=== PATIENT | female | born 1995 | race Hispanic/Latino ===

== ENCOUNTER 2019-08-02 02:35 | Day surgery (SDC) | payer OTHER ==
[2019-08-02 03:11] VITALS: BP 108/71; TEMP 98.3; BMI 26.8
[2019-08-02 03:56] LABS: Amnisure Internal Control QC ACCEPTABLE (ACCEPTABLE); Amnisure Test No Membranes Rupture (No Rupture)
--- NOTE | 2019-08-02 04:14 | PDOC.FPROB ---
FMR OB H&P: HPI - History of Present Illness Chief Complaint: LOF Indentification: 24 yo at 37.3 wga by LMP/16.4 wk sono History of Present Illness: Presents for what she thought to be loss of fluid around 2:30 this morning. Reports fetus made large movement, she went to bathroom and saw clear fluid. Denies VB, other vaginal discharge. + FM. Has been having some contractions since that time. Contractions felt low in her pelvis about every 5-10 minutes. Primary Care Physician: PNC: Tommy. 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: none - Surgical History Sx History: denies - Social History Social History: denies SACHIN - Family History Family History: denies FMR OB H&P: Medications - Current Home Medications: Medication Instructions Recorded Confirmed Type Vitamin 1 tablet PO DAILY 08/02/19 08/02/19 History Allergies/Adverse Reactions: Allergies Allergy/AdvReac Type Severity Reaction Status Date / Time No Known Allergies Allergy Verified 08/02/19 03:11 FMR OB H&P: ROS - Review of Systems General: denies: fever/chills, recent trauma Eyes: denies: vision changes, scotomas ENT: denies: nasal congestion Cardiovascular: denies: chest pain Respiratory: denies: cough, shortness of breath Gastrointestinal: denies: abdominal pain, nausea, vomiting Genitourinary (Female): reports: contractions. denies: dysuria, vaginal discharge, vaginal pain, vaginal bleeding Musculoskeletal: denies: pain Neurologic: denies: weakness, headache Integumentary: denies: rash Hematologic/Lymphatic: denies: prolonged or excessive bleeding FMR OB H&P: Vital Signs - Maternal Vital signs: Vital Signs - First Documented Temp Pulse Resp BP Pulse Ox 98.3 F 73 16 108/71 97 08/02/19 03:01 08/02/19 03:01 08/02/19 03:01 08/02/19 03:01 08/02/19 03:01 - Heart Tones Baseline: 120 Variability: moderate Acceleration: present Deceleration: absent Category: category 1 [place] contractions every: 15 min FMR OB H&P: Physical Exam - Physical Exam General: NAD, awake, alert and oriented HEENT: normocephalic and atraumatic, conjunctiva clear, no scleral icterus, grossly normal hearing Heart: RRR, normal S1/S2, no murmurs/rubs/gallops, other (mild lower extremity edema) General: CTAB, no wheezing Abdomen: soft, gravid, other (minimally tender) Musculoskeletal: pulses present Deviation from normal: mild redness to abdomen Lymphatic: no purpura, no petechia Psychiatric: normal mood and affect - Pelvic Exam SVE: 1/thick/-2 Membranes: intact FMR OB H&P: Results - Labs Lab results: Laboratory Results - last 24 hr 08/02/19 03:23 Amnio Swab Test No Membranes Rupture FMR OB H&P: A/P - Problem List (1) Irregular contractions Status: Acute Code(s): O62.2 - OTHER UTERINE INERTIA Disposition: observation on L&D. Discharge pending speculum & bedside ultrasound. Discussion: Date/Time: 08/02/19 0412 24 yo at 37.3 wga, Term IUP presenting today for : LOF, contractions: - amnisure negative - check 1/thick/-2. Repeat cervical check unchanged. - no continued leaking of fluid - category 1 strip - will perform speculum exam and bedside sono to assess fluid status. This H&P was discussed with Dr. Navarro and Dr. Maynard who agree with the above documentation and plan. Signature: Laurie Bear MD PGY1 Addendum - Attending - Attending Attestation Date/Time: 08/02/19 0624 I personally evaluated the patient and discussed the management with Dr. Bear I agree with the History, Examination, Assessment and Plan documented above with any addition or exceptions noted below. vitals 108/71 98.3 73 16 97% amnisure neg otoniel 14 speculum exam neg for pooling. pt discharged home with precautions
--- NOTE | 2019-08-02 04:41 | PDOC.BPN ---
- Brief Progress Note Bedside sono performed. ERICA of 14.8. Speculum exam: no pooling. Some white appearing discharge, asked about vaginal itching, signs of infection. Pt denied. D/C home. F/U w/ PNC as scheduled. Return precautions given.
== END 2019-08-02 04:47 | disposition home or self-care (01) ==
LOC: L&D/OP 02:35
PROVIDERS: ATTEND Obstetrics & Gynecology
DX: O99.89 Other specified diseases and conditions complicating pregnancy, childbirth and the puerperium (principal); N89.8 Other specified noninflammatory disorders of vagina; O47.1 False labor at or after 37 completed weeks of gestation; Z3A.37 37 weeks gestation of pregnancy
CPT/HCPCS: 84112; 99285

== ENCOUNTER 2019-08-15 04:36 | Inpatient (IN) | payer MEDICAID, OTHER, SELFPAY ==
[2019-08-15 05:07] VITALS: BMI 28.0
[2019-08-15] MEDS ORDERED: hydrALAZINE 20 MG/ML VIAL SLOW IVP PRN ×2 (05:20→10:32)
--- NOTE | 2019-08-15 06:01 | PDOC.FPROB ---
FMR OB H&P: HPI - History of Present Illness Chief Complaint: contractions Indentification: 24F @ 39.5wga by LMP c/w 16.4wk sono History of Present Illness: Patient is a 24F @ 39.5wga by LMP c/w 16.4wk sono that presents with contractions. Patient reports that contractions began at 3am this morning. She denies any loss of fluid or vaginal bleeding. She reports of some brown discharge about 3 days ago that has since resolved. She also had a headache a few days ago that has since resolved, and denies any headaches, vision changes, or swelling at this time. She denies cp, sob, abd pain, n/v, dysuria, vaginal discharge. She does report that she had a bout of diarrhea this morning around the time that her contractions started. She endorses movement. She denies any complications with this . Is unsure if she wants an epidural. Plans to breastfeed after delivery. 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: last pap a few weeks ago, per patient; NILM - Surgical History Sx History: none - Social History Social History: non-smoker, no etoh use, no drug use - Family History Family History: Father: HTN, passed from an HI Maternal Grandmother: DM FMR OB H&P: Medications - Current Home Medications: Medication Instructions Recorded Confirmed Type Vitamin 1 tablet PO DAILY 08/02/19 08/15/19 History Allergies/Adverse Reactions: Allergies Allergy/AdvReac Type Severity Reaction Status Date / Time No Known Allergies Allergy Verified 08/02/19 03:11 FMR OB H&P: ROS - Review of Systems General: denies: fever/chills, weight/appetite/sleep changes Eyes: denies: eye pain, vision changes ENT: denies: rhinorrhea, trouble with swallowing Cardiovascular: denies: chest pain, palpitation, edema Respiratory: reports: shortness of breath (when lying down). denies: cough Gastrointestinal: reports: diarrhea (1 bout this morning). denies: abdominal pain, vomiting, bright red blood Genitourinary (Female): denies: dysuria, hematuria Musculoskeletal: denies: pain, stiffness Neurologic: denies: syncope, seizures Integumentary: denies: itching, rash Breast: denies: lumps, bumps Endocrine: denies: cold intolerance, heat intolerance Hematologic/Lymphatic: denies: prolonged or excessive bleeding, enlarged lymph nodes Psychological: denies: depression, anxiety FMR OB H&P: Vital Signs - Maternal Vital signs: 109/68, p86 - Heart Tones Baseline: 130 Variability: moderate Acceleration: present Deceleration: absent Category: category 1 [place] contractions every: 3-8min FMR OB H&P: Physical Exam - Physical Exam General: NAD, awake, alert and oriented HEENT: EOMI, MMM Neck: supple, FROM Chest: non-tender to palpation, no lesions Heart: RRR, normal S1/S2 General: CTAB, no respiratory distress Abdomen: soft, gravid, non-tender, bowel sound present Musculoskeletal: pulses present, FROM in all four extremities Neurological: sensation to pain,touch and proprioception grossly normal, no focal deficit Skin: no rash, good tugor Lymphatic: no unusual bruising or bleeding, no purpura Psychiatric: intact recent and remote memory, good judgement and insight - Pelvic Exam SVE: 2.5/75/-2 [place] score: 6 Membranes: intact Presentation: cephalic FMR OB H&P: A/P - Problem List (1) Uterine contractions during Current Visit: Yes Status: Acute Code(s): O62.2 - OTHER UTERINE INERTIA (2) Normal in third trimester Current Visit: Yes Status: Acute Code(s): Z34.93 - ENCNTR FOR SUPRVSN OF NORMAL PREG, UNSP, THIRD TRIMESTER Disposition: Patient is a 24F @ 39.5wga by LMP c/w 16.4wk sono that presents with contractions. #sIUP #Contractions -ctx began at 3am this am -ctx q3-8min on strip -2.5/75/-2 @ 5am, intact -denies loss of fluid, vaginal bleeding; endorses movement -GBS negative -BP 109/68, denies [place], vision changes, swelling -denies dysuria, vaginal discharge -FHT: baseline 130, moderate variability with no decels -will recheck cervix at 7am. If patient does not make progress will discharge patient with return precautions. If patient does make progress will consider admitting to L&D at that time Dispo: term presenting with contractions; will continue to monitor FHT and recheck cervix at 7am to assess for progress Discussion: Date/Time: 08/15/19 5806 This H&P was discussed with [Aleyda] and [Susanne] who agree with the above documentation and plan. Signature: Chanel Rene, PGY1 Addendum - Attending - Attending Attestation Date/Time: 08/15/19 5016 I personally evaluated the patient and discussed the management with Dr. Rene I agree with the History, Examination, Assessment and Plan documented above with any addition or exceptions noted below.
--- NOTE | 2019-08-15 09:56 | ULT ---
Ultrasound biophysical profile HISTORY: Nonreactive strip FINDINGS: There is evidence of a single intrauterine gestation in cephalic presentation. Cardiac Doppler demons trates heart tones with a heart rate of 128 bpm. The placenta is located posteriorly without evidence of placenta previa. There is a normal amount of amniotic fluid. The amniotic fluid i ndex is calculated at 19 cm. The cervix is not completely imaged due to shadowing from the head. A score of 2 was obtained each for tone, breathing, movements, and amniotic fluid v olume. IMPRESSION: 1. Single intrauterine gestation in cephalic presentation with heart tones documented. 2. Amniotic fluid index is calculated at 19 cm. 3. Total biophysical profile score is 8 out of 8.
[2019-08-15] MEDS ORDERED: NS / Oxytocin 40 units/1000ml 1,000 ML IV PRN (10:32)
[2019-08-15] MEDS ORDERED: Lidocaine 1% (PF) 30 ML VIAL SC PRN (10:32)
[2019-08-15] MEDS ORDERED: Promethazine HCl 25 MG/ML VIAL IM PRN (10:32)
[2019-08-15] MEDS ORDERED: Ondansetron PF 4 MG/2 ML Vial IVP PRN (10:32)
--- NOTE | 2019-08-15 10:32 | PDOC.EVN ---
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 BPP 02/23...Class I FHTs CX changed from 2 to 4cm We will admit for early labor at full term. Augment if needed. Check GBS status.
--- NOTE | 2019-08-15 10:45 | PDOC.LDPN ---
Labor & Delivery Progress Note - Subjective Subjective: comfortable, painful contractions - Objective Vital signs reviewed and normal: yes General: NAD, resting, breathing through contractions Uterine fundus: non tender SVE: @10:30, 4/90/-3, membranes intact, by Dr. Cooper Dilation: 4 Effacement: 90% Station: -2 FHT: category 1 (acels present, moderate variability, no decels. FHT's baseline 130 ), variability present Plan: continue plan of care -: Patient is a 24F @ 39.5wga by LMP c/w 16.4wk sono that presents with contractions. Admitting to L&D for Labor. 1. IUP, latent labor -ctx began at 3am 08/15/18 -ctx Q2-3 min -2.5/75/-2 @ 5am, intact. Pt made cervical change to 490/-2 @10:30, intact membranes. Admitting for labor. Will augment if pt has not shown progression by 13:00. - Pt desires epidural for pain management. -FHT: baseline 130, moderate variability with no decels, few acels present. -GBS negative, requested records from [facility]. - Fax of [facility] records pending, will update once received. Care plan discussed with Dr. English, ARMATURE VARNISHER, who agree to above plan.
[2019-08-15] MEDS: Lactated Ringer's 1,000 ML IV SCH ×3 (11:03→19:20)
[2019-08-15 11:42] LABS: Hemoglobin 11.2 g/dL (12.0-16.0); Mean Corpuscular HGB CONC 33.7 g/dL (32.0-36.0); Mean Corpuscular Hemoglobin 29.7 pg (27.0-31.0); Mean Corpuscular Volume 88.1 fL (78.0-98.0); Mean Platelet Volume 7.7 fL (7.4-10.4); Platelet Count 321 thou/uL (130-400); RBC Distribution Width 11.6 % (11.5-14.5); Red Blood Cell (RBC) Count 3.79 mill/uL (4.20-5.40); White Blood Cell (WBC) Count 8.8 thou/uL (4.8-10.8)
[2019-08-15 12:25] LABS: Syphilis Antibody Nonreactive (Nonreactive); Syphilis Antibody Index 0.04 S/CO (<1.00 Non-Reactive)
[2019-08-15 12:26] LABS: HBSAg Index 0.24 S/CO (0-0.99); Hep B Surf Ag Non-Reactive S/CO (NonReactive)
[2019-08-15] MEDS ORDERED: Fentanyl 4 mcg/Bup 0.1% Cadd 100 ML ONE ×2 (13:16→20:37)
--- NOTE | 2019-08-15 13:20 | PDOC.LDPN ---
Labor & Delivery Progress Note - Subjective Subjective: comfortable, painful contractions - Objective Vital signs reviewed and normal: yes General: NAD, resting, breathing through contractions Uterine fundus: non tender SVE: Dr. Cooper Dilation: 5 Effacement: 90% Station: -2 FHT: category 1 (baseline FHT's 130, moderate variability with periods of decreased variabilty, non-sustained), variability present [place] contractions every: 5-6 min AROM: clear fluid Plan: continue plan of care -: Patient is a 24F @ 39.5wga by LMP c/w 16.4wk sono that presents with contractions. Admitting to L&D for Labor. 1. IUP, latent labor -ctx began at 3am 08/15/18 -ctx Q2-3 min -2.5/75/-2 @ 5am, intact. Pt made cervical change to 4/90/-2 @10:30, intact membranes. -5/90/-2, AROM, with clear fluid @ 13:00. - Pt desires epidural for pain management at this time, nurse to contact anesthesia. -Will consider augmentation with pit once epidural placed. -FHT: baseline 130, moderate variability with no decels, few acels present. Periods of decreased variability that are nonsustaining episodes. -GBS negative per pt's card from [facility], requested records from [facility]. - Fax of [facility] records pending, will update once received. Re-initiated record request per nursing staff. Care plan discussed with Dr. English, BIOLOGICAL INSPECTOR, who agree to above plan.
--- NOTE | 2019-08-15 15:07 | PDOC.LDPN ---
Labor & Delivery Progress Note - Subjective Subjective: comfortable, painful contractions - Objective Vital signs reviewed and normal: yes General: NAD, resting, breathing through contractions Uterine fundus: non tender SVE: Dr. Cooper, /-2 Dilation: 6 Effacement: 100% Station: -2 FHT: category 2 (baseline FHT's 130. Few nonsustained variables and early decels. minimal variability. ) [place] contractions every: 2-3 min AROM: clear fluid - Assessment (1) Normal labor Code(s): O80 - ENCOUNTER FOR FULL-TERM UNCOMPLICATED DELIVERY; Z37.9 - OUTCOME OF DELIVERY, UNSPECIFIED Current Visit: Yes Status: Acute Plan: continue plan of care -: Patient is a 24F @ 39.5wga by LMP c/w 16.4wk sono that presents with contractions. Admitting to L&D for Labor. 1. IUP, Active labor -ctx began at 3am 08/15/18 -ctx Q2-3 min -2.5/75/-2 @ 5am, intact. Pt made cervical change to /90/-2 @10:30, intact membranes. -5/90/-2, AROM, with clear fluid @ 13:00. -@15:00, SVE 6/100/-2 - Epidural in place, minimal 3/10 pain noted in upper Left thigh. - Will recheck in 2 hours and monitor for cervical change. Will hold on starting pitocin at this time, will start pit at 17:00 if no change. -FHT: baseline 130, minimal variability few acels present. Non-sustained variables and early decels. Cat 2 strip. -GBS negative -Records from [facility]: Hep B -, RPR -, HIV -, GC/C -, rubella immune, blood type B+ . NILM pap 06/2019, 2 hr gtt 76/118/95. Tdap given 06/26/19. Flu vac given . No abnormalities reported on [facility] visit 07/04/19. 2. Iron deficiency anemia - continue PO iron post delivery. - H/H: 11.2/33.4 08/15/19. Care plan discussed with Dr. English, SPLIT LEATHER DEPARTMENT SUPERVISOR, who agree to above plan.
[2019-08-15] MEDS ORDERED: Bupivacaine 0.25% HCL 30 ML VIAL ONE (15:26)
--- NOTE | 2019-08-15 19:10 | PDOC.EVN ---
Event Note - Event Note Event Note: L&D CHECK: Strip reviewed with Residents summer sessions director. CTX ap[pear every 2 minutes but on external...I have instructed the resident summer sessions director to place an IUPC for MVU capture. Mod variability on NST. CX still 7cm from last check. No pitocin in use at this time.
--- NOTE | 2019-08-15 21:26 | PDOC.LDPN ---
Labor & Delivery Progress Note - Subjective Subjective: comfortable, no concerns - Objective Vital signs reviewed and normal: yes General: NAD, resting, breathing through contractions Uterine fundus: non tender Dilation: 9 Effacement: 100% Station: 1+ FHT: category 2, early decelerations, variability present [place] contractions every: 2-3 IUPC placed: yes FSE placed: yes Plan: continue plan of care -: Pt is a 24 yo at 39.5 weeks by LMP c/w 16.4 wk sono who presented for cx: # Labor, Intrauterine 9 cm/100%/+1. No pitocin at this time. IUPC placed with adequate contractions. FSE placed. - Continue current care
--- NOTE | 2019-08-16 00:08 | PDOC.LDPN ---
Labor & Delivery Progress Note - Subjective Subjective: comfortable, no concerns - Objective Vital signs reviewed and normal: yes General: NAD, breathing through contractions Uterine fundus: non tender Dilation: Complete Effacement: 100% Station: 1+ FHT: category 2, early decelerations [place] contractions every: 2-3 mins IUPC placed: yes FSE placed: yes Plan: labor augmentation -: Pt is a 24 yo at 39.6 weeks by LMP c/w 16.4 wk sono who presented for cx: # Labor, Intrauterine Complete/100%/+1. No augmentation required IUPC placed with adequate contractions. FSE placed. - Labor down with test pushes
[2019-08-16] MEDS: Lactated Ringer's 1,000 ML IV SCH (02:35)
[2019-08-16] MEDS ORDERED: Fentanyl 4 mcg/Bup 0.1% Cadd 100 ML ONE (02:47)
--- NOTE | 2019-08-16 03:27 | PDOC.LDPN ---
Labor & Delivery Progress Note - Subjective Subjective: comfortable, vaginal pressure - Objective Vital signs reviewed and normal: yes General: breathing through contractions Dilation: Complete Effacement: 100% Station: 1+ FHT: category 1, variability present [place] contractions every: q3mins IUPC placed: yes FSE placed: yes Plan: continue plan of care -: Pt is a 24 yo at 39.6 weeks by LMP c/w 16.4 wk sono who presented for cx: # Labor, Intrauterine Complete/100%/+1. No labor change since laboring down began ~0045. Pt was given time to rest after a trial. - Labor down at this time. If pt makes no change will need to consider c- section due to failure to progress.
[2019-08-16] MEDS ORDERED: Oxytocin 10 UNITS/ML VIAL ONE (03:59)
[2019-08-16] MEDS ORDERED: Lidocaine 2% MPF 10 ML AMP (For Epidural Use) ONE (03:59)
[2019-08-16] MEDS ORDERED: Bicitra 30 ML UDCUP ONE (04:08)
--- NOTE | 2019-08-16 04:13 | PRG ---
DATE OF SERVICE: 08/16/2019 TIME OF EVALUATION: 0345 TIME OF DICTATION: Now at 0354. LOCATION: Labor and Delivery in bed 6. PREOP CS NOTE In brief, this patient has been pushing since approximately 1230 t0 1245, giving her a second stage of labor of 3 hours. Patient has made no descent despite adequate pushing and even a trial of rest to prevent maternal exhaustion. I examined the patient myself at 0345 and found the exam to be complete, 0 to +1. caput is at +1 with skull at 0 station. Due to failure to descend, I suspect deep transverse arrest. I am not able to rotate the child because of the location of the pelvic spines and a firmly placed head. I have discussed the failure to descend second stage with the patient and her , and the 3-hour second stage limit. I did review that while historically an additional hour could be used, especially as the patient has labor epidural anesthetic, the risk of progress with zero descent over these last 3 hours makes successful vaginal delivery unlikely. Patient agrees for primary section. Once again, the indication is failure to descend at second stage with a 3-hour second stage time interval. We will not proceed with the additional hour due to lack of any progress from 0 to +1 station. Operative vaginal delivery is not possible due to the high location of the head. Job ID: [id number] [facility]
[2019-08-16] MEDS ORDERED: Azithromycin 500 MG VIAL ONE (04:19)
[2019-08-16] MEDS ORDERED: Ondansetron PF 4 MG/2 ML Vial ONE (04:28)
[2019-08-16] MEDS ORDERED: Promethazine HCl 25 MG/ML VIAL IM PRN (04:35)
[2019-08-16] MEDS ORDERED: L&D-Morphine 4 MG/ML VIAL SLOW IVP PRN (04:35)
[2019-08-16] MEDS ORDERED: Ondansetron PF 4 MG/2 ML Vial IVP PRN (04:35)
[2019-08-16] MEDS ORDERED: Ketorolac Tromethamine 30 MG/ML VIAL IVP PRN (04:35)
[2019-08-16] MEDS ORDERED: diphenhydrAMINE 50 MG/ML VIAL IVP PRN (04:35)
[2019-08-16] MEDS ORDERED: Promethazine HCl 25 MG SUPP PR PRN (04:35)
[2019-08-16] MEDS ORDERED: Naloxone HCl 0.4 mg/ml Vial IVP PRN ×2 (04:35)
[2019-08-16] MEDS ORDERED: Naloxone HCl 0.4 mg/ml Vial IV PRN (04:35)
[2019-08-16] MEDS ORDERED: Ondansetron HCl/PF 4 MG/2 ML Vial IVP PRN (04:35)
[2019-08-16] MEDS ORDERED: HYDROmorphone 2 MG/ML VIAL SLOW IVP PRN (04:35)
[2019-08-16] MEDS ORDERED: Meperidine HCl/PF 25 MG/ML VIAL SLOW IVP PRN (04:35)
[2019-08-16] MEDS ORDERED: Fentanyl 100 MCG/2 ML VIAL ONE ×2 (04:38→05:15)
[2019-08-16] MEDS ORDERED: Communication Order-Pharmacy FS SCH (04:45)
[2019-08-16] MEDS ORDERED: Ketorolac Tromethamine 30 MG/ML VIAL IVP SCH (04:45)
[2019-08-16 04:51] LABS: Actual Bicarbonate (HCO3v) 26 mEq/L (22-28); Base Excess -0.9 mEq/L (-2.0 to +3.0); pH (Cord, venous) 7.33 (7.32-7.43)
[2019-08-16] MEDS ORDERED: MORPHINE 5 MG/10 ML PF VIAL ONE (04:51)
--- NOTE | 2019-08-16 05:29 | OP ---
DATE OF PROCEDURE: 08/16/2019 FACULTY NOTE PROCEDURE: In brief, I was scrubbed and assisted with the primary done for failure to progress/failure to descend at 2nd stage. SURGEONS: The principal surgeons were Dr. Frank Navarro and Dr. Salvatore Sanders. STAFF: Faculty was myself. ANESTHESIA: Anesthesia was spinal and local poured into the wound due to patient 's discomfort at time of hysterotomy closure. Antibiotics were Ancef and Zithromax. EBL is about 700 mL, but the QBL is pending. NICU was present for delivery. Baby was vigorous at delivery. Cord gas was sent. Please see the full dictation by the residents. Important to note, the baby was in an OP position and right after hysterotomy, the baby's arm prolapsed through the hysterotomy. This appeared to be the baby's left arm. With the arm still through the hysterotomy, we proceeded to deliver the head without complication. Remainder of the body then delivered without incident. Cord was doubly clamped, transected, and the baby was vigorous at . A cord gas was sent due to prolonged 2nd stage of labor. Hysterotomy was closed in 2 layers, and copious irrigation was performed of the abdominal pelvic cavity. After confirming that all counts were correct, the abdomen was closed in the usual manner. Skin was closed with suture. It is important to note that the patient did have some mild complaint of discomfort during hysterotomy closure and I poured 30 mL of 1% lidocaine directly into the wound for conservative care. Anesthesia/Umer also gave some IV medication to assist with pain. The patient's blood pressure and pulse were stable throughout this episode. It is unsure if the patient felt pressure or pain during her , but it appeared to be mild. Because of this, we did not halt the procedure, but continued after instillation of the local, which seemed to help. Job ID: [id number] [facility]
[2019-08-16] MEDS ORDERED: Bisacodyl 10 MG SUPP PR PRN (05:35)
[2019-08-16] MEDS ORDERED: Methylergonovine 0.2 MG/ML VIAL IM PRN (05:35)
[2019-08-16] MEDS ORDERED: diphenhydrAMINE 25 MG CAP PO PRN (05:35)
[2019-08-16] MEDS ORDERED: Lanolin Ointment 7 GM TUBE TOP PRN (05:35)
[2019-08-16] MEDS ORDERED: Misoprostol 200 MCG TAB PR PRN (05:35)
[2019-08-16] MEDS ORDERED: HYDROcodone/Acetaminophen 5/325 mg Tablet PO PRN ×2 (05:35→16:45)
[2019-08-16] MEDS ORDERED: Acetaminophen 325 MG TAB PO PRN (05:35)
[2019-08-16] MEDS ORDERED: Adacel (T-DAP) 0.5 ML SYRINGE IM ONE (05:35)
[2019-08-16] MEDS ORDERED: Methylergonovine 0.2 MG TAB PO PRN (05:35)
[2019-08-16] MEDS ORDERED: hydrALAZINE 20 MG/ML VIAL SLOW IVP PRN (05:35)
--- NOTE | 2019-08-16 07:09 | DN ---
DATE OF PROCEDURE: 08/16/2019 RESIDENT SURGEON: Salvatore Sanders, PGY-3. CLOCK AND WATCH ASSEMBLER SURGEON: Frank Navarro, PGY-3. ATTENDING SURGEON: Saeid English MD PROCEDURE PERFORMED: Primary low-transverse section. PREOPERATIVE DIAGNOSIS: Term intrauterine . POSTOPERATIVE DIAGNOSES: 1. Term intrauterine , delivered. 2. Failure to descend. ANESTHESIA: Epidural. INDICATIONS: The patient is a 24-year-old, G1, P0 female at 39 and 6 weeks' gestation, who presents for a primary scheduled for failure to progress. DESCRIPTION OF PROCEDURE: After risks, benefits, and alternatives were explained to the patient, she gave informed consent. Preoperative antibiotics include cefazolin 2 g IV and azithromycin 500 mg IV. The patient was taken to the operating room, and epidural anesthesia had already been placed during labor. She was placed in the supine position with a left tilt and prepped and draped in the usual sterile fashion. A Pfannenstiel low-transverse section incision was made with Bovie cautery down to the level of the fascia, which was sharply nicked. The fascial cut was extended bluntly and with Culver scissors bilaterally. The inferior and superior edges of the cut fascial edges were elevated with Meagan clamps, and the underlying rectus muscles were sharply and bluntly dissected free. The recti were divided digitally and retracted manually. The peritoneum was entered bluntly and retracted manually, and the Jordan O retractor was placed. A low transverse score was made with the scalpel, and the uterus was entered in the midline with a scalpel. Clear fluid was seen, and the hysterotomy was extended manually. The infant was noted to be vertex in the occiput posterior position with face up and left arm presenting out as well. The infant was then easily delivered by fundal pressure. Mouth and nares were bulb suctioned. Cord clamped and cut, and grossly normal female was handed to waiting nurse. Cord gas was obtained, and cord blood was obtained. The placenta was manually extracted, found to be intact with 3-vessel cord and discarded. Uterus and endometrium were curetted with a dry lap. The uterus was then closed with a running locking 0 Vicryl suture followed by a running nonlocking #1 chromic imbricating suture. Following this, hemostasis was noted. During closure of the uterus, the patient was experiencing some pain more on the left side, 5 mL of lidocaine was poured into the abdominal area. The patient did have a little bit of a ringing in her ears due to this. The patient was noted to have adequate pain control after this. The abdomen was irrigated with saline and suctioned free of clots. The hysterotomy was again noted to be hemostatic. The peritoneal layer was closed with a 3-0 chromic suture. The fascia was then closed with a running nonlocking 0 PDS suture. The subcu tissue was irrigated, and there were no bleeders, and the subcu layer was approximated with 3-0 chromic suture, and the skin was approximated with a 3-0 Anton needle suture. The pressure dressing was placed. All counts were correct. The patient tolerated the procedure well and was taken to the recovery room in stable condition. EBL: 700. QBL: Pending at this time. COMPLICATIONS: There was a slight extension down to the edge of the cervix due to the infant's presentation. SPECIMENS: Cord blood was sent to the lab for blood typing and cord gas sent as well. FINDINGS: Grossly normal female infant with Apgars of 9 and 9. Grossly normal placenta with 3-vessel cord, discarded. DRAINS: Barros to gravity, draining some pink urine, which this was noted to be draining prior to as well. Job ID: [id number]
--- NOTE | 2019-08-16 08:54 | PDOC.PP ---
Post Progress Note Post Day #: 0 Subjective: 24yo [id number] who delivered viable F via LTCS @ 0435 due to failure to descend. Patient resting comfortably in bed. Complaining of 4/10 pain at the incision site. Patient has only had water to drink, no fluid. Barros in place. Has not gotten up to ambulate yet. Has not passed gas. PO intake tolerated: no Flatus: no Ambulation: no Weight Weight 66.678 kg - Physical Examination General: NAD Cardiovascular: no m/r/g, RRR Respiratory: clear to auscultation bilaterally, non-labored breathing Abdominal: no distention, appropriately TTP Deviation from normal: minimal bowel sounds Fundus firm & at: below umbilicus Skin: CS incision dry & intact, no rash Neurological: no gross focal deficits Psychiatric: A&Ox3, normal affect Result Diagrams: 08/15/19 11:28 Additional Labs: Post Labs Blood Type B POSITIVE 08/15/19 12:03 Hep Bs Antigen Non-Reactive S/CO (NonReactive) 08/15/19 11:28 (1) delivery delivered Code(s): O82 - ENCOUNTER FOR DELIVERY WITHOUT INDICATION Status: Acute - Assessment/Plan #Term delivery via LTCS 4hrs post LTCS note - Continue routine PP care - tylenol, motrin, norco for pain - bowel regimen in place - patient desires to breastfeed - consult in place - encourage ambulation Addendum - Attending - Attending Attestation Date/Time: 08/16/19 3670 I personally evaluated the patient and discussed the management with Dr. Curry. I agree with the Assessment and Plan documented above.
[2019-08-16] MEDS: Simethicone Chewable 80 MG TAB PO PRN ×3 (11:03→21:34)
[2019-08-16] MEDS: Prenatal Vitamin 1 TAB PO SCH (14:42)
[2019-08-16] MEDS: Ibuprofen 800 MG TAB PO SCH ×3 (14:43→23:39)
[2019-08-16] MEDS: HYDROcodone/Acetaminophen 5/325 mg Tablet PO PRN (21:40)
[2019-08-17] MEDS: Ibuprofen 800 MG TAB PO SCH ×6 (06:06→22:39)
[2019-08-17 06:08] LABS: Hemoglobin 8.3 g/dL (12.0-16.0); Mean Corpuscular Hemoglobin 29.6 pg (27.0-31.0); Mean Corpuscular Volume 89.7 fL (78.0-98.0); Mean Platelet Volume 7.3 fL (7.4-10.4); Platelet Count 270 thou/uL (130-400); RBC Distribution Width 11.4 % (11.5-14.5); Red Blood Cell (RBC) Count 2.82 mill/uL (4.20-5.40); White Blood Cell (WBC) Count 11.5 thou/uL (4.8-10.8)
[2019-08-17] MEDS: HYDROcodone/Acetaminophen 5/325 mg Tablet PO PRN ×4 (06:20→20:54)
--- NOTE | 2019-08-17 07:55 | PDOC.PP ---
Post Progress Note Post Day #: 1 Subjective: Pt reports doing well. reports some occasional burning pain. Reports pain overall well controlled with current regimen. Reports passing gas. reports light lochia. Denies any chest pain, SOB, fever or chills. Denies any lightheadness or dizziness. Says is going well and has already been by to see her. Vital Signs (12 hours) Temp Pulse Resp BP Pulse Ox 08/17/19 07:47 98.5 F 79 20 100/59 L 97 08/17/19 06:00 98.6 F 82 16 100/49 L 08/16/19 23:40 98.6 F 78 16 103/55 L Weight Weight 66.678 kg - Physical Examination General: NAD Cardiovascular: no m/r/g, RRR Respiratory: clear to auscultation bilaterally, non-labored breathing Abdominal: + bowel sounds, lochia (reports as light), no distention, appropriately TTP Fundus firm & at: below ubmilicus Skin: CS incision dry & intact, no rash Neurological: no gross focal deficits Psychiatric: A&Ox3, normal affect Result Diagrams: 08/17/19 05:41 Additional Labs: Post Labs Blood Type B POSITIVE 08/15/19 12:03 Hep Bs Antigen Non-Reactive S/CO (NonReactive) 08/15/19 11:28 (1) delivery delivered Code(s): O82 - ENCOUNTER FOR DELIVERY WITHOUT INDICATION Status: Acute (2) Failure to progress in second stage of labor Code(s): O62.2 - OTHER UTERINE INERTIA Status: Acute - Assessment/Plan 24 yo @ 39.6 wks delivered MARILEE F via pLTCS 2/2 failure to progress. Post- - Continue routine PP care - tylenol, motrin, norco for pain- reports pain well controlled - bowel regimen in place - patient desires to breastfeed - consult in place - encourage ambulation -Hgb down to 8.3. VSS. Pt asx. Started oral iron at this time. Dispo: Will continue to monitor and control pain throughout day. Likely d/c tmrw. Addendum - Attending - Attending Attestation Date/Time: 08/18/19 5922 I personally evaluated the patient and discussed the management with Dr. Sanders. I agree with the Assessment and Plan documented above.
[2019-08-17] MEDS: Simethicone Chewable 80 MG TAB PO PRN ×3 (09:07→20:55)
[2019-08-17] MEDS: Prenatal Vitamin 1 TAB PO SCH (09:07)
[2019-08-17] MEDS: Ferrous Sulfate 325 MG TAB PO SCH (09:07)
[2019-08-18] MEDS: HYDROcodone/Acetaminophen 5/325 mg Tablet PO PRN ×2 (02:35→21:01)
[2019-08-18] MEDS: Simethicone Chewable 80 MG TAB PO PRN (02:36)
[2019-08-18] MEDS: Ibuprofen 800 MG TAB PO SCH ×4 (05:20→21:01)
[2019-08-18] MEDS ORDERED: Gabapentin 300 MG CAP PO SCH (06:58)
--- NOTE | 2019-08-18 07:03 | PDOC.PP ---
Post Progress Note Post Day #: 2 Subjective: Pt reports overall doing well. Denies any acute events overnight. States pain is overall well controlled but having some R. sided burning pain in the area of the incision. tolerating PO, passing gas. 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 Denies any fever or chills. Denies any chest pain or SOB. Pt reports having some nasal congestion and feeling blocked up and having hard time breathing through her nose PO intake tolerated: yes Flatus: yes Ambulation: yes Vital Signs (12 hours) Temp Pulse Resp BP Pulse Ox 08/18/19 02:36 98.2 F 72 18 110/57 L 08/17/19 19:13 99.0 F 78 12 111/58 L 97 Weight Weight 66.678 kg - Physical Examination General: NAD Cardiovascular: no m/r/g, RRR Respiratory: clear to auscultation bilaterally, non-labored breathing Abdominal: + bowel sounds, lochia (reports as normal), no distention, appropriately TTP Extremities: negative homans (B) Skin: CS incision dry & intact, no rash Neurological: no gross focal deficits Psychiatric: A&Ox3, normal affect Result Diagrams: 08/17/19 05:41 Additional Labs: Post Labs Blood Type B POSITIVE 08/15/19 12:03 Hep Bs Antigen Non-Reactive S/CO (NonReactive) 08/15/19 11:28 (1) delivery delivered Code(s): O82 - ENCOUNTER FOR DELIVERY WITHOUT INDICATION Status: Acute (2) Failure to progress in second stage of labor Code(s): O62.2 - OTHER UTERINE INERTIA Status: Acute - Assessment/Plan 24 yo @ 39.6 wks delivered TAGA F via pLTCS 2/2 failure to progress. Post- - Continue routine PP care - tylenol, motrin, norco for pain- reports pain overall controlled except burning pain. Think at this time pain related to nerve trauma. will px gabapentin and see if helps. - bowel regimen in place - patient desires to breastfeed - consult in place - encourage ambulation -Hgb down to 8.3. VSS. Pt asx. On oral iorn at this time. Rhinosinusitis -Pt reporting nasal congestion -Px flonase and zyrtec. Dispo: Will monitor pt through afternoon and see if new medications for pain and nasal congestion provide with relief. Possibly home later today.
[2019-08-18] MEDS: Prenatal Vitamin 1 TAB PO SCH (07:43)
[2019-08-18] MEDS: Ferrous Sulfate 325 MG TAB PO SCH (07:43)
[2019-08-18 07:56] VITALS: BP 101/56; TEMP 98
[2019-08-18] MEDS ORDERED: Fluticasone Propionate Nasal Spray 16 gm Bottle NASAL SCH (09:00)
[2019-08-18] MEDS ORDERED: Loratadine 10 MG TAB PO SCH (09:00)
[2019-08-18] MEDS ORDERED: Cetirizine HCl 10 MG TAB PO SCH (09:00)
[2019-08-18] MEDS: Gabapentin 300 MG CAP PO SCH ×2 (13:42→21:00)
[2019-08-18] MEDS ORDERED: Lidocaine 5% Patch TD SCH (14:00)
--- NOTE | 2019-08-21 06:31 | PQF ---
[employer] [facility] [employer] [facility] Crystal Reports Winform ViewerJIMENROSHAN FABIAN AKIL LOUIS [id number] CLINICAL DOCUMENTATION CLARIFICATION FORM: POST DISCHARGE Addendum to original discharge summary date: ____ Late entry note date: __ DATE: 08/21/2019 ATTN:AKIL LOUIS Please exercise your independent, professional judgment in responding to the clarification form. Clinical indicators are provided on the bottom of this form for your review Please check appropriate box(s): [X ] Acute blood loss anemia [ ] Post-op anemia related to acute blood loss [ ] Chronic Anemia [X ] Other diagnosis postpartum anemia [ ] Unable to determine In addition, please specify: Present on Admission (POA): [ ] Yes [ X ] No [ ] Unable to determine For continuity of documentation, please document condition throughout progress notes and discharge summary. Thank You. CLINICAL INDICATORS - SIGNS / SYMPTOMS / LABS HGB 11.2 on 08/15 to 8.3 on 08/17 - Documented in Laboratory HCT 33.4 on 08/15 and 25.3 on 08/17 - Documented in Laboratory BP 99/56 on 08/16 , 97/56 on 08/17 and 101/56 on 08/18 - Documented in Vital Signs Estimated Blood loss 700 ml - Documented in OP note RISK FACTORS Failure to descend 2 stage - Documented in PNs on 08/16 by AKIL LOUIS Primary C section Iron deficiency anemia - Documented in OB PNs on 08/15 by Kenneth Ramsey TREATMENTS: Ferrous sulfate - Documented in Medication report Continue PO iron Post delivery - Documented in OB PNs on 08/15 by Kenneth Ramsey (This form is maintained as a part of the permanent medical record) 2014 [employer] All Rights Reserved [employer] Crystal Reports Winform [email or web address]
== END 2019-08-18 19:45 | disposition home or self-care (01) | DRG 787 ==
LOC: L&D/OP 04:36 → L&D 12:59 → L&D/OP 08-16 04:48 → 3SW 08-16 08:08
PROVIDERS: ADMIT Obstetrics & Gynecology; ATTEND Obstetrics & Gynecology
PROC: 10D00Z1 Extraction of Products of Conception, Low, Open Approach (ICD-10-PCS; principal; 2019-08-16)
PROC: 10H07YZ Insertion of Other Device into Products of Conception, Via Natural or Artificial Opening (ICD-10-PCS; 2019-08-16)
PROC: 10907ZC Drainage of Amniotic Fluid, Therapeutic from Products of Conception, Via Natural or Artificial Opening (ICD-10-PCS; 2019-08-16)
DX: O99.02 Anemia complicating childbirth (principal); O72.1 Other immediate postpartum hemorrhage; Z3A.39 39 weeks gestation of pregnancy; Z37.0 Single live birth; O76 Abnormality in fetal heart rate and rhythm complicating labor and delivery; O62.0 Primary inadequate contractions; J32.8 Other chronic sinusitis; O99.89 Other specified diseases and conditions complicating pregnancy, childbirth and the puerperium; D50.9 Iron deficiency anemia, unspecified
CPT/HCPCS: 36415; 76819; 82805; 85027; 86780; 86850; 86900; 86901; 87340; J0456; J0690; J1885; J2001; J2274; J2405; J2590; J3010; S0020